=== PATIENT | female | born 1950 | race Caucasian/White ===

== ENCOUNTER 2017-07-04 09:26 | Inpatient (IN) ==
[2017-07-04] MEDS ORDERED: Ondansetron 4 MG/2 ML VIAL IVP ONE (09:52)
[2017-07-04] MEDS ORDERED: 0.9 % Sodium Chloride 1,000 ML IVC ONE (09:52)
--- NOTE | 2017-07-04 09:52 | Emergency Department Note ---
Disposition Clinical Impression: Acute renal injury due to hypovolemia Anemia Qualifiers: Anemia type: unspecified type Qualified Code(s): D64.9 - Anemia, unspecified Disposition: Admitted As Inpatient Condition: Fair Time of Disposition: 11:40 ([facility]) Nausea/Vomiting/Diarrhea HPI - General Chief complaint: ED Nausea/Vomiting/Diarrhea Stated complaint: nausea/vomiting/diarrhea Time Seen by Provider: 07/04/17 09:49 Source: patient, family Limitations: no limitations - History of Present Illness Pt Subjective Complaint: nausea, vomiting, diarrhea Onset (ago): week(s) Description of emesis: food contents, watery Description of Diarrhea: water Associated Abdominal Pain: No Severity: moderate Consistency: intermittent Improves with: nothing Worsens with: nonthing Associated symptoms: Reports: loss of appetite. Denies: myalgias, chest pain, cough, headaches, dysuria, shortness of breath, syncope - Related Data Home Medications Medication Instructions Recorded Confirmed Atenolol [Tenormin] 25 mg PO DAILY 07/04/17 07/04/17 Citalopram [CeleXA] 20 mg PO DAILY 07/04/17 07/04/17 Lisinopril [Zestril] 40 mg PO DAILY 07/04/17 07/04/17 Pravastatin Sodium [Pravachol] 20 mg PO DAILY 07/04/17 07/04/17 traZODone [TraZODone] 100 mg PO HS 07/04/17 07/04/17 Allergies Allergy/AdvReac Type Severity Reaction Status Date / Time No Known Allergies Allergy Verified 07/04/17 09:28 Past Medical History - Past Medical History Medical history: Reports: hyperlipidemia, hypertension, other Psychiatric history: Reports: no psych history INDUSTRIAL CHEMIST history: Reports: no INDUSTRIAL CHEMIST history - Social History Smoking Status: Current every day smoker Smokeless Tobacco Status: No Alcohol use: Reports: rarely Drug use: Reports: none Physical Exam - General Limitations: no limitations General appearance: alert Course Vital Signs Temperature 99.5 F 07/04/17 09:28 Pulse Rate 99 07/04/17 09:28 Respiratory Rate 18 07/04/17 09:28 Blood Pressure 99/60 07/04/17 09:28 O2 Sat by Pulse Oximetry 97 07/04/17 09:28 Temperature 99.0 F 01/04/18 12:37 Pulse Rate 90 07/05/17 12:37 Respiratory Rate 16 07/05/17 12:37 Blood Pressure 92/53 07/05/17 12:37 O2 Sat by Pulse Oximetry 95 07/05/17 12:37 Oxygen Delivery Oxygen Delivery Room Air Nausea/Vomiting/Diarrhea - MDM Narrative Medical decision making narrative: Stable ED course were nonspecific etiology for current nausea, vomiting and diarrhea. The patient does have acute kidney injury secondary to hypovolemia. The patient also has undetermined etiology for her anemia. She will be admitted to the hospital for hydration and further evaluation and treatment. The patient is amenable with current disposition and plan. - Medical Records Medical records reviewed: Yes I reviewed the patient's medical records. - Lab Data Lab results reviewed: Yes I reviewed the patient's lab results. Result diagrams: 07/05/17 05:51 07/05/17 05:51 Lab Results 07/04/17 07/04/17 07/04/17 Range/Units 10:23 10:23 10:23 WBC 2.1 L (4.3-11.1) K/mcL RBC 2.96 L (3.82-4.97) M/mcL Hgb 8.7 L (11.5-15.4) g/dL Hct 26.2 L (35.3-44.9) % MCV 88.5 (83.0-100.0) fL MCH 29.4 (28.0-33.3) pg MCHC 33.2 (31.6-35.5) g/dL RDW 17.0 H (11.5-14.5) % Plt Count 86 L (140-400) K/mcL MPV 11.3 (9.4-12.4) fL Seg Neutrophils % 60.0 % Band Neutrophils % 14.0 H (0-4) % Lymphocytes % 6.0 % Monocytes % 20.0 % Neutrophils # 1.6 (1.6-8.9) K/mcL Lymphocytes # 0.1 L (0.6-4.6) K/mcL Monocytes # 0.4 (0.0-1.3) K/mcL Platelet Estimate Decreased L (Normal) Sodium 134 L (136-145) mEq/L Potassium 3.6 (3.5-4.5) mEq/L Chloride 99 (98-109) mEq/L Carbon Dioxide 23 (19-29) mEq/L BUN 27 H (7-20) mg/dL Creatinine 1.44 H (0.57-1.11) mg/dL Est GFR ( Amer) 44 L (> 60) Est GFR (Non-Af Amer) 37 L (> 60) BUN/Creatinine Ratio 19 (6-26) Glucose 115 H (70-99) mg/dL Calculated Osmolality 284 (280-300) Calcium 9.0 (8.6-10.8) mg/dL Magnesium 1.8 (1.6-2.6) mg/dL Total Bilirubin 1.2 (0.2-1.2) mg/dL AST 11 (5-34) Units/L ALT 10 (0-55) Units/L Alkaline Phosphatase 94 (38-126) Units/L Serum Total Protein 7.4 (6.0-8.3) g/dL Albumin 2.9 L (3.5-5.0) g/dL Globulin 4.5 H (2.4-3.5) g/dL Albumin/Globulin Ratio 0.6 L (1.1-2.2) Lipase 5 L (8-78) Units/L TSH 4.593 (0.350-4.840) mcIU/mL Urine Color (Yellow) Urine Clarity (Clear) Urine pH (5.0-8.0) pH Units Ur Specific [place] (1.010-1.025) Urine Protein (Neg-Trace) mg/dL Urine Glucose (UA) (Normal) mg/dL Urine Ketones (Negative) mg/dL Urine Blood (Negative) Urine Nitrite (Negative) Urine Bilirubin (Negative) Urine Urobilinogen (Normal) mg/dL Ur Leukocyte Esterase (Negative) Urine Microscopic RBC (0-3) per hpf Urine Microscopic WBC (0-3) per hpf Ur Squamous Epith Cells (None-Few) per lpf Amorphous Sediment (Few) Urine Bacteria (None-Few) per hpf Hyaline Casts (None-Few) per lpf Granular Casts (None Seen) per lpf Ur Culture Indicated? (NO) 07/04/17 Range/Units 11:31 WBC (4.3-11.1) K/mcL RBC (3.82-4.97) M/mcL Hgb (11.5-15.4) g/dL Hct (35.3-44.9) % MCV (83.0-100.0) fL MCH (28.0-33.3) pg MCHC (31.6-35.5) g/dL RDW (11.5-14.5) % Plt Count (140-400) K/mcL MPV (9.4-12.4) fL Seg Neutrophils % % Band Neutrophils % (0-4) % Lymphocytes % % Monocytes % % Neutrophils # (1.6-8.9) K/mcL Lymphocytes # (0.6-4.6) K/mcL Monocytes # (0.0-1.3) K/mcL Platelet Estimate (Normal) Sodium (136-145) mEq/L Potassium (3.5-4.5) mEq/L Chloride (98-109) mEq/L Carbon Dioxide (19-29) mEq/L BUN (7-20) mg/dL Creatinine (0.57-1.11) mg/dL Est GFR ( Amer) (> 60) Est GFR (Non-Af Amer) (> 60) BUN/Creatinine Ratio (6-26) Glucose (70-99) mg/dL Calculated Osmolality (280-300) Calcium (8.6-10.8) mg/dL Magnesium (1.6-2.6) mg/dL Total Bilirubin (0.2-1.2) mg/dL AST (5-34) Units/L ALT (0-55) Units/L Alkaline Phosphatase (38-126) Units/L Serum Total Protein (6.0-8.3) g/dL Albumin (3.5-5.0) g/dL Globulin (2.4-3.5) g/dL Albumin/Globulin Ratio (1.1-2.2) Lipase (8-78) Units/L TSH (0.350-4.840) mcIU/mL Urine Color [place] A (Yellow) Urine Clarity Slightly Cloudy A (Clear) Urine pH 5.0 (5.0-8.0) pH Units Ur Specific [place] 1.025 (1.010-1.025) Urine Protein 30 H (Neg-Trace) mg/dL Urine Glucose (UA) Normal (Normal) mg/dL Urine Ketones Trace H (Negative) mg/dL Urine Blood Moderate H (Negative) Urine Nitrite Negative (Negative) Urine Bilirubin Moderate H (Negative) Urine Urobilinogen 4.0 H (Normal) mg/dL Ur Leukocyte Esterase Negative (Negative) Urine Microscopic RBC 3-5 H (0-3) per hpf Urine Microscopic WBC 0-3 (0-3) per hpf Ur Squamous Epith Cells Many H (None-Few) per lpf Amorphous Sediment Moderate H (Few) Urine Bacteria Few (None-Few) per hpf Hyaline Casts Few (None-Few) per lpf Granular Casts Few H (None Seen) per lpf Ur Culture Indicated? NO (NO) - Radiology Data Chest/Abdomen X-ray 07/04/17 09:52 IMPRESSION: 1. No acute cardiopulmonary disease. 2. Gallstones. D/ / Juan Burns MD / Juan Burns MD Interpreting Provider: Juan Burns MD Abdomen/Pelvis CT 07/04/17 19:11 IMPRESSION: 1. Common bile duct is dilated up to 1.7 cm without obvious cause. 2. Multiple calcified gallstones. 3. Multiple subcentimeter gastrohepatic ligament lymph nodes could represent reactive change. 4. Colonic diverticulosis without evidence of acute diverticulitis. D/ / Cliff Mcbride MD / Cliff Mcbride MD Interpreting Provider: Cliff Mcbride MD Chest CT 07/04/17 19:11 IMPRESSION: Ill-defined airspace disease in the lateral aspect of the right middle lobe. This is indeterminate may represent a small segment of atelectasis or pneumonia. This is age indeterminate. Multiple small lymph nodes in the axillary regions and mediastinum without pathologic enlargement. Tiny nodular densities on the left are too small to characterize Gallstones Splenomegaly D/ / Nic Lr / Nic Lr Interpreting Provider: Nic Lr
[2017-07-04 10:32] LABS: Hematocrit 26.2 % (35.3-44.9); Hemoglobin 8.7 g/dL (11.5-15.4); Mean Corpuscular HGB Conc 33.2 g/dL (31.6-35.5); Mean Corpuscular Hemoglobin 29.4 pg (28.0-33.3); Mean Corpuscular Volume 88.5 fL (83.0-100.0); Mean Platelet Volume 11.3 fL (9.4-12.4); Platelet Count 86 K/mcL (140-400); Red Blood Count 2.96 M/mcL (3.82-4.97)
[2017-07-04 10:40] LABS: Magnesium 1.8 mg/dL (1.6-2.6)
[2017-07-04 10:46] LABS: Albumin 2.9 g/dL (3.5-5.0); Albumin/Globulin Ratio 0.6 (1.1-2.2); Bilirubin,Total 1.2 mg/dL (0.2-1.2); Globulin 4.5 g/dL (2.4-3.5); Potassium 3.6 mEq/L (3.5-4.5); Total Protein 7.4 g/dL (6.0-8.3)
[2017-07-04 11:06] LABS: Thyroid Stimulating Hormone 4.593 mcIU/mL (0.350-4.840)
[2017-07-04 11:37] LABS: Bilirubin,Urine Moderate (Negative); Blood,Urine Moderate (Negative); Clarity,Urine Slightly Cloudy (Clear); Color,Urine Amber (Yellow); Glucose,Urine (UA) Normal (Normal); Ketones,Urine Trace mg/dL (Negative); Leukocyte Esterase,Urine Negative (Negative); Nitrite,Urine Negative (Negative); Protein,Urine 30 mg/dL (Neg-Trace); Specific Gravity,Urine 1.025 (1.010-1.025)
[2017-07-04 12:00] LABS: Amorphous Sediment,Urine Moderate (Few); Bacteria,Urine Few per hpf (None-Few); Granular Casts,Urine Few per lpf (None Seen); Hyaline Casts,Urine Few per lpf (None-Few); Squamous Epithelial Cell,Urine Many per lpf (None-Few); WBC,Urine 0-3 per hpf (0-3)
[2017-07-04 12:33] LABS: Lymphocytes # 0.1 K/mcL (0.6-4.6); Monocytes # 0.4 K/mcL (0.0-1.3); Neutrophils # 1.6 K/mcL (1.6-8.9); Platelet Estimate Decreased (Normal)
[2017-07-04] MEDS ORDERED: Ondansetron 4 MG/2 ML VIAL IVP PRN (13:31)
[2017-07-04] MEDS ORDERED: 0.9 % Sodium Chloride 1,000 ML IVC SCH (13:31)
[2017-07-04] MEDS ORDERED: Naloxone 0.4 MG/ML INJ IVP PRN (13:31)
[2017-07-04] MEDS ORDERED: 0.9 % Sodium Chloride 500 ML IVC ONE (15:43)
[2017-07-04] MEDS: Acetaminophen 325 MG TABLET PO PRN (16:07)
--- NOTE | 2017-07-04 19:21 | Internal Med History&Physical ---
Date of Encounter: 07/04/17 Time of Encounter: 18:45 Assessment and Plan (1) Acute renal injury due to hypovolemia Current visit: Yes Status: Acute She will be given IV fluids. Renal indices will be rechecked in a.m. (2) Pancytopenia Current visit: Yes Status: Acute Not present on August 2016 labs. Will order anemia testing ,SPEP and free light chains (3) Weight loss Current visit: Yes Status: Acute We will order CT scan of chest abdomen and pelvis to further evaluate for malignancy Internal Medicine - H&P: HPI Chief complaint: Vomiting, diarrhea, weakness Admitted From: Emergency Dept Plans for Post Hospital Care: Home History of present illness: Ms. Cervantes is a 66 year old female who came to emergency room stating she had been experiencing recurrent cycles of vomiting and diarrhea over the last 3 months. She reports the episodes would last several days and then completely resolve. There was no significant abdominal pain associated. She denies blood in the vomit or the stool. She has felt progressively weaker and has had several falls at home with most recent one approximately 2 weeks ago. Her was adamant she come to emergency room for further evaluation. She was found to have pancytopenia with bandemia and was admitted to [facility] floor for ongoing care needs. She reports she has had intermittent sensation of low-grade fevers and night sweats for several weeks. She has had approximately 15 pound weight loss in the past 4 months, unintentionally. She denies unusual travel or other environmental exposures. Past Med Surg Social Fam HX - Past Medical History Medical history: hyperlipidemia, hypertension, other Psychiatric history: no psych history - Social History Smoking Status: Current every day smoker Smokeless Tobacco Status: No Alcohol use: rarely Drug use: none Internal Medicine - H&P: Meds Atenolol [Tenormin] 25 mg PO DAILY 07/04/17 [History] Citalopram [CeleXA] 20 mg PO DAILY 07/04/17 [History] Lisinopril [Zestril] 40 mg PO DAILY 07/04/17 [History] Pravastatin Sodium [Pravachol] 20 mg PO DAILY 07/04/17 [History] traZODone [TraZODone] 100 mg PO HS 07/04/17 [History] 3 Allergy/AdvReac Type Severity Reaction Status Date / Time No Known Allergies Allergy Verified 07/04/17 09:28 All Systems PM: A 10-system review of systems was performed and is negative for pertinent findings except as documented above in the HPI. Review of systems: Gen.: She has had weight loss of 15 pounds in the past 4 months, unintentionally Cardiovascular: She has history of hypertension. 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 She denies having a heart cath done. She reports having a "viral infection" around her heart but could not give details. She is uncertain if she has been told she has had viral pericarditis or nonischemic cardiomyopathy. She denies DVT or pulmonary embolus. Respiratory: She has smoked since age 29 never up to 1 pack per day. She does not wear oxygen and has not been diagnosed with chronic lung disease GI: She denies disorders of her liver gallbladder or exocrine pancreas : She has noticed dark urine intermittently for several weeks but has not sought medical attention. She denies other kidney or bladder disorders. She was unaware she had intermittent azotemia on labs since January 2014. Neurologic: She denies large distribution strokes or seizures. Endocrine: She denies diabetes thyroid disease or hyperlipidemia Hematology/oncology: She was unaware she had anemia or pancytopenia prior to coming to the emergency room. She denies known internal malignancies. Psychiatric: She denies anxiety depression or other mental health issues Musk skeletal: She denies arthritis gout or other bone joint or muscle disorders. - Constitutional Vitals: Temp Pulse Resp BP Pulse Ox 100.4 F H 97 18 86/53 97 07/04/17 15:29 07/04/17 15:29 07/04/17 15:29 07/04/17 15:29 07/04/17 15:29 Exam: Gen.: She is well-developed well-nourished female lying in bed who appears in no acute distress HEENT: Head is atraumatic and normocephalic. Eyes: EOMI. There is no scleral icterus. Mouth: Mucosa is moist. Neck: Supple and nontender. There is no thyromegaly or adenopathy noted in the cervical or supraclavicular areas Heart: Regular without murmurs gallops or ectopics Lungs: No wheezes or crackles are heard. Abdomen: Soft and nontender. No masses or guarding are noted. Extremities: There is no cyanosis edema or clubbing noted. Dorsalis pedis and posterior tibial pulses are trace to 1+ palpable bilaterally. Neurologic: Mental status: She is talkative and a good historian. Cranial nerves: Smile is symmetric. Forehead wrinkles bilaterally. Tongue protrudes midline. EOMI. Motor: There is no pronator drift. Cerebellar: Finger to nose is intact bilaterally. Skin: Warm and dry Internal Med - H&P Results - Labs CBC & Chem 7: 07/04/17 10:23 07/04/17 10:23
[2017-07-04] MEDS: traZODone 50 MG TABLET PO SCH (21:07)
[2017-07-05] MEDS: 0.45 % Sodium Chloride w/KCl 20 MEQ/1,000 ML MLS IVC SCH ×2 (02:20→12:15)
[2017-07-05 06:11] LABS: Hematocrit 20.7 % (35.3-44.9); Hemoglobin 6.8 g/dL (11.5-15.4); Immature Granulocytes % 1.5 % (0-4); Lymphocytes # 0.3 K/mcL (0.6-4.6); Lymphocytes % 22.2 %; Mean Corpuscular HGB Conc 32.9 g/dL (31.6-35.5); Mean Corpuscular Hemoglobin 29.3 pg (28.0-33.3); Mean Corpuscular Volume 89.2 fL (83.0-100.0); Mean Platelet Volume 11.9 fL (9.4-12.4); Monocytes % 32.6 %; Neutrophils # 0.6 K/mcL (1.6-8.9); Red Blood Count 2.32 M/mcL (3.82-4.97); Red Cell Distribution Width 16.8 % (11.5-14.5); Segmented Neutrophils % 43.7 %
[2017-07-05 06:23] LABS: BUN/Creatinine Ratio 23 (6-26); Blood Urea Nitrogen 25 mg/dL (7-20); Calcium 7.7 mg/dL (8.6-10.8); Carbon Dioxide 20 mEq/L (19-29); Chloride 106 mEq/L (98-109); Glucose 87 mg/dL (70-99); Osmolality,Calculated 286 (280-300); Potassium 3.9 mEq/L (3.5-4.5); Sodium 136 mEq/L (136-145); eGFR For African Americans > 60 (> 60); eGFR For Non-African Americans 51 (> 60)
[2017-07-05 06:56] LABS: Monocytes # 0.5 K/mcL (0.0-1.3); Platelet Count 59 K/mcL (140-400)
[2017-07-05 07:22] LABS: Anisocytosis 1+ (Not Present); Platelet Estimate Decreased (Normal)
[2017-07-05 07:23] LABS: Spherocytes 1+ (Not Present)
[2017-07-05] MEDS ORDERED: Lisinopril 20 MG TABLET PO SCH (09:00)
--- NOTE | 2017-07-05 11:22 | Internal Med Progress Note ---
Date of Encounter: 07/05/17 Time of Encounter: 11:15 - Assessment and plan (1) Acute renal injury due to hypovolemia Current Visit: Yes Status: Acute Assessment and plan: July 05. Azotemia improved. We will decrease IV rate and monitor renal indices. (2) Pancytopenia Current Visit: Yes Status: Acute Assessment and plan: July 05. All cell lines further decreased today. Anemia testing, SPEP, and serum free light chains all pending. (3) Weight loss Current Visit: Yes Status: Acute Assessment and plan: July 05. Chest and abdomen/pelvis CT did not show pathology suggestive of malignancy. (4) Pneumonia Current Visit: Yes Status: Acute Assessment and plan: July 05. Chest CT showed possible right middle lobe pneumonia. We will start Rocephin and Zithromax with lactobacillus. Qualifiers: Pneumonia type: due to unspecified organism Laterality: right Lung location: middle lobe of lung Qualified Code(s): J18.1 - Lobar pneumonia, unspecified organism - Subjective Interval history: July 05. She has no new complaints. - Constitutional Vitals: Temp Pulse Resp BP Pulse Ox 99.7 F H 92 18 108/71 94 07/05/17 07:00 07/05/17 07:00 07/05/17 07:00 07/05/17 07:00 07/05/17 07:00 Exam: She is resting comfortably in bed and appears in no acute distress. Her affect is bright and cheerful. I reviewed her medications, lab results, and CT reports. Internal Medicine: Result - Labs CBC & Chem 7: 07/05/17 05:51 07/05/17 05:51 Labs: Short CBC 07/05/17 Range/Units 05:51 WBC 1.4 L (4.3-11.1) K/mcL Hgb 6.8 L D (11.5-15.4) g/dL Hct 20.7 L (35.3-44.9) % Plt Count 59 L (140-400) K/mcL Neutrophils # 0.6 L (1.6-8.9) K/mcL BMP 07/05/17 05:51 Sodium 136 Potassium 3.9 Chloride 106 Carbon Dioxide 20 BUN 25 H Creatinine 1.08 Glucose 87 Calcium 7.7 L - Impressions Impressions Abdomen/Pelvis CT 07/04/17 19:11 IMPRESSION: 1. Common bile duct is dilated up to 1.7 cm without obvious cause. 2. Multiple calcified gallstones. 3. Multiple subcentimeter gastrohepatic ligament lymph nodes could represent reactive change. 4. Colonic diverticulosis without evidence of acute diverticulitis. D/ / Cliff Mcbride MD / Cliff Mcbride MD Interpreting Provider: Cliff Mcbride MD Chest CT 07/04/17 19:11 IMPRESSION: Ill-defined airspace disease in the lateral aspect of the right middle lobe. This is indeterminate may represent a small segment of atelectasis or pneumonia. This is age indeterminate. Multiple small lymph nodes in the axillary regions and mediastinum without pathologic enlargement. Tiny nodular densities on the left are too small to characterize Gallstones Splenomegaly D/ / Nic Lr / Nic Lr Interpreting Provider: Nic Lr Consult Discharge Plan - Plan Referrals: Gertrudis Chapin MD [Primary Care Provider] - 1 week
[2017-07-05] MEDS: Azithromycin 500 MG in D5% in Water 250 ML IVPB SCH (12:23)
[2017-07-05] MEDS: Acetaminophen 325 MG TABLET PO PRN (16:09)
[2017-07-05] MEDS ORDERED: Cyanocobalamin (B-12) 1,000 MCG/ML VIAL IM ONE (18:00)
[2017-07-05] MEDS: traZODone 50 MG TABLET PO SCH (19:51)
[2017-07-05] MEDS: Lactobacillus 1 EACH CAP.SPRINK PO SCH (19:51)
[2017-07-05 23:20] LABS: % Iron Saturation 6 % (15-50); Ferritin > 1350 ng/ml (10-120); Iron 10 mcg/dL (50-170); Transferrin 117 mg/dL (203-362)
[2017-07-06 06:25] LABS: Hematocrit 20.3 % (35.3-44.9); Hemoglobin 6.6 g/dL (11.5-15.4); Immature Granulocytes % 1.5 % (0-4); Lymphocytes # 0.3 K/mcL (0.6-4.6); Lymphocytes % 21.2 %; Mean Corpuscular HGB Conc 32.5 g/dL (31.6-35.5); Mean Corpuscular Hemoglobin 28.8 pg (28.0-33.3); Mean Corpuscular Volume 88.6 fL (83.0-100.0); Mean Platelet Volume 11.4 fL (9.4-12.4); Monocytes # 0.4 K/mcL (0.0-1.3); Monocytes % 31.8 %; Neutrophils # 0.6 K/mcL (1.6-8.9); Red Blood Count 2.29 M/mcL (3.82-4.97); Red Cell Distribution Width 16.6 % (11.5-14.5); Segmented Neutrophils % 45.5 %
[2017-07-06 06:36] LABS: Platelet Count 64 K/mcL (140-400)
[2017-07-06 06:42] LABS: Alanine Aminotransferase 11 Units/L (0-55); Albumin 2.2 g/dL (3.5-5.0); Albumin/Globulin Ratio 0.7 (1.1-2.2); Alkaline Phosphatase 90 Units/L (38-126); Aspartate Amino Transferase 13 Units/L (5-34); BUN/Creatinine Ratio 21 (6-26); Bilirubin,Total 0.7 mg/dL (0.2-1.2); Blood Urea Nitrogen 16 mg/dL (7-20); Calcium 7.9 mg/dL (8.6-10.8); Carbon Dioxide 21 mEq/L (19-29); Chloride 108 mEq/L (98-109); Globulin 3.3 g/dL (2.4-3.5); Glucose 98 mg/dL (70-99); Osmolality,Calculated 287 (280-300); Potassium 4.2 mEq/L (3.5-4.5); Sodium 138 mEq/L (136-145); Total Protein 5.5 g/dL (6.0-8.3); eGFR For African Americans > 60 (> 60); eGFR For Non-African Americans > 60 (> 60)
[2017-07-06 07:31] LABS: Anisocytosis 1+ (Not Present)
[2017-07-06 07:32] LABS: Hypochromasia Present (Not Present); Platelet Estimate Normal (Normal)
[2017-07-06] MEDS: 0.45 % Sodium Chloride w/KCl 20 MEQ/1,000 ML MLS IVC SCH ×2 (09:13→09:20)
[2017-07-06] MEDS: Lactobacillus 1 EACH CAP.SPRINK PO SCH ×2 (09:15→21:40)
--- NOTE | 2017-07-06 09:56 | Internal Med Progress Note ---
Date of Encounter: 07/06/17 Time of Encounter: 09:45 - Assessment and plan (1) Acute renal injury due to hypovolemia Current Visit: Yes Status: Acute Assessment and plan: July 05. Azotemia improved. We will decrease IV rate and monitor renal indices. July 06. Azotemia resolved with creatinine at the lowest level since January 2014. We will discontinue IV fluids. (2) Pancytopenia Current Visit: Yes Status: Acute Assessment and plan: July 05. All cell lines further decreased today. Anemia testing, SPEP, and serum free light chains all pending. July 06. Minimal change overnight. Anemia testing showed low B12 and she was given IM injection yesterday. Ferritin was markedly elevated probably reflecting acute phase reactant rather than true iron status. SPEP and free light chains pending. She is still reluctant to take packed red blood cell transfusion. Since she is asymptomatic at this time will observe and recheck labs tomorrow. (3) Weight loss Current Visit: Yes Status: Acute Assessment and plan: July 05. Chest and abdomen/pelvis CT did not show pathology suggestive of malignancy. (4) Pneumonia Current Visit: Yes Status: Acute Assessment and plan: July 05. Chest CT showed possible right middle lobe pneumonia. We will start Rocephin and Zithromax with lactobacillus. July 06. Continue Rocephin, Zithromax, and lactobacillus. Qualifiers: Pneumonia type: due to unspecified organism Laterality: right Lung location: middle lobe of lung Qualified Code(s): J18.1 - Lobar pneumonia, unspecified organism - Subjective Interval history: July 05. She has no new complaints. July 06. She has no new complaints and feels better. She reports no orthostatic symptoms or significant dyspnea ambulating to the bathroom. - Constitutional Vitals: Temp Pulse Resp BP Pulse Ox 99.4 F 88 18 104/61 93 07/06/17 05:34 07/06/17 05:34 07/06/17 05:34 07/06/17 05:34 07/06/17 05:34 Exam: She is resting comfortably in bed and appears in no acute distress. Her affect is bright and cheerful. I reviewed her medications and lab results. Internal Medicine: Result - Labs CBC & Chem 7: 07/06/17 06:07 07/06/17 06:07 Labs: Short CBC 07/06/17 Range/Units 06:07 WBC 1.3 L (4.3-11.1) K/mcL Hgb 6.6 L (11.5-15.4) g/dL Hct 20.3 L (35.3-44.9) % Plt Count 64 L (140-400) K/mcL Neutrophils # 0.6 L (1.6-8.9) K/mcL BMP 07/06/17 06:07 Sodium 138 Potassium 4.2 Chloride 108 Carbon Dioxide 21 BUN 16 Creatinine 0.77 Glucose 98 Calcium 7.9 L Liver Function 07/06/17 Range/Units 06:07 Total Bilirubin 0.7 (0.2-1.2) mg/dL AST 13 (5-34) Units/L ALT 11 (0-55) Units/L Alkaline Phosphatase 90 (38-126) Units/L Albumin 2.2 L D (3.5-5.0) g/dL Consult Discharge Plan - Plan Referrals: Gertrudis Chapin MD [Primary Care Provider] - 1 week
[2017-07-06] MEDS: Azithromycin 500 MG in D5% in Water 250 ML IVPB SCH (12:49)
[2017-07-06 15:45] LABS: Kappa Qnt Free Light Chains 5.21 mg/dL (0.33-1.94); Lambda Qnt Free Light Chains 2.2 mg/dL (0.57-2.63)
[2017-07-06] MEDS: traZODone 50 MG TABLET PO SCH (21:40)
[2017-07-07 01:14] LABS: Alpha 2 Globulin (PEP) 0.87 g/dL (0.48-1.05); Beta Globulin (PEP) 0.82 g/dL (0.48-1.10)
[2017-07-07 05:21] LABS: Eosinophils % 0.7 %; Hematocrit 21.5 % (35.3-44.9); Hemoglobin 6.8 g/dL (11.5-15.4); Immature Granulocytes % 4.2 % (0-4); Lymphocytes % 38.2 %; Mean Corpuscular HGB Conc 31.6 g/dL (31.6-35.5); Mean Corpuscular Hemoglobin 28.7 pg (28.0-33.3); Mean Corpuscular Volume 90.7 fL (83.0-100.0); Mean Platelet Volume 11.7 fL (9.4-12.4); Monocytes # 0.4 K/mcL (0.0-1.3); Neutrophils # 0.5 K/mcL (1.6-8.9); Red Blood Count 2.37 M/mcL (3.82-4.97); Red Cell Distribution Width 16.9 % (11.5-14.5); Segmented Neutrophils % 31.9 %
[2017-07-07 05:25] LABS: Lymphocytes # 0.5 K/mcL (0.6-4.6); Platelet Count 80 K/mcL (140-400)
[2017-07-07 06:14] LABS: Anisocytosis 1+ (Not Present); Platelet Estimate Decreased (Normal)
[2017-07-07 06:15] LABS: Hypochromasia Present (Not Present)
[2017-07-07 06:31] VITALS: BP 99/53
--- NOTE | 2017-07-07 08:52 | Discharge Summary ---
Date of Encounter: 07/07/17 Time of Encounter: 08:40 - Discharge Diagnosis (1) Acute renal injury due to hypovolemia Priority: Primary Status: Resolved (2) Pneumonia Priority: Secondary Status: Acute Qualifiers: Pneumonia type: due to unspecified organism Laterality: right Lung location: middle lobe of lung Qualified Code(s): J18.1 - Lobar pneumonia, unspecified organism (3) Pancytopenia Priority: Secondary Status: Acute (4) Weight loss Priority: Secondary Status: Acute - Discharge Medications Prescriptions: Cefuroxime PO [Ceftin] 500 mg PO Q12HR #8 tablet Ascorbate Calcium [Vitamin C] 500 mg PO DAILY #30 tablet Azithromycin [Zithromax] 250 mg PO DAILY #4 tablet Cyanocobalamin (B-12) [Vitamin B12] 1,000 mcg PO DAILY 365 Days tablet Ferrous Sulfate 325 mg PO DAILY #30 tablet Lactobacillus [Culturelle] 1 each PO BID #8 [email or web address] Home Medications: Citalopram [CeleXA] 20 mg PO DAILY 07/04/17 [History] traZODone [TraZODone] 100 mg PO HS 07/04/17 [History] Ascorbate Calcium [Vitamin C] 500 mg PO DAILY #30 tablet 07/07/17 [Rx] Azithromycin [Zithromax] 250 mg PO DAILY #4 tablet 07/07/17 [Rx] Cefuroxime PO [Ceftin] 500 mg PO Q12HR #8 tablet 07/07/17 [Rx] Cyanocobalamin (B-12) [Vitamin B12] 1,000 mcg PO DAILY 365 Days tablet [Rx] Ferrous Sulfate 325 mg PO DAILY #30 tablet 07/07/17 [Rx] Lactobacillus [Culturelle] 1 each PO BID #8 [email or web address] 07/07/17 [Rx] Allergies/Adverse Reactions: 3 Allergy/AdvReac Type Severity Reaction Status Date / Time No Known Allergies Allergy Verified 07/04/17 09:28 Date of admission: 07/06/17 13:59 Primary care physician: Gertrudis Chapin - Patient Status Disposition: Home, Self-Care Condition: Fair Functional capacity at discharge: independent ambulation Overall status at discharge: patient is progressing back to baseline - Discharge Instructions Follow Up With: Gertrudis Chapin MD [Primary Care Provider] - 1 week - Diet and Activity Activity: resume usual activities as tolerated Diet: advance to your usual diet Hospital course: Ms. Cervatnes is a 66 year old female who came to emergency room stating she had been experiencing recurrent cycles of vomiting and diarrhea over the last 3 months. She reports the episodes would last several days and then completely resolve. There was no significant abdominal pain associated. She denies blood in the vomit or the stool. She has felt progressively weaker and has had several falls at home with most recent one approximately 2 weeks ago. Her was adamant she come to emergency room for further evaluation. She was found to have pancytopenia with bandemia and was admitted to [facility] floor for ongoing care needs. Initial orders were written by the emergency room physician. I saw her on July 04 and performed a history and physical. She was given IV fluids. Lisinopril and Tenormin were held. Her azotemia resolved with BUN and creatinine decreasing to 16 and 0.77 respectively with estimated GFR greater than 60 on July 06. She will remain off these medications at discharge. Anemia testing showed iron 10, transferrin saturation 6%, transferrin 117, ferritin greater than 1350, B12 198, and folate 28. She was given a B12 injection and will continue oral B12 supplementation at home. She will also be given ferrous sulfate with vitamin C. A serum protein electrophoresis and serum free light chains were ordered because of the anemia and elevated globulin. These results are pending at time of discharge. Her globulin normalized by July 06 with hydration and medication adjustments listed above. Her WBC decreased to 1.4 on July 05 and remained stable throughout the remainder of hospitalization. Platelet count was stable at 80 K on day of discharge. Hemoglobin was stable at 6.8 on day of discharge. She did not wish to receive a blood transfusion and was asymptomatic on ambulation. Bandemia resolved and there was a significant rise in lymphocytes and monocytes. I felt her pancytopenia was possibly due to infection. She was treated for pneumonia with Rocephin and Zithromax and will continue with oral antibiotics and probiotics for 4 additional days at discharge. Her PCP can monitor her CBC. She will be discharged home and follow with her PCP Dr. Chapin within 1 week. - Time Spent with Patient Total time spent providing and/or coordinating discharge services: - Constitutional Vitals: Temp Pulse Resp BP Pulse Ox 98.0 F 87 16 99/53 98 07/07/17 06:30 07/07/17 06:30 07/07/17 06:30 07/07/17 06:30 07/07/17 06:30
[2017-07-07] MEDS: Lactobacillus 1 EACH CAP.SPRINK PO SCH (09:06)
[2017-07-07 10:41] LABS: IFE Reflexed NOT DONE
== END 2017-07-07 10:08 | disposition home or self-care (01) | DRG 682 ==
LOC: EMEROOPIK 09:26 → INPPIK 09:26
PROVIDERS: ADMIT Internal Medicine; ATTEND Internal Medicine

== ENCOUNTER 2017-11-14 12:50 | Inpatient (IN) ==
[2017-11-15] MEDS ORDERED: (Diclofenac Sodium [Voltaren] 1 APPL) TP PRN (17:13)
[2017-11-15] MEDS ORDERED: Nitroglycerin 0.4 MG TAB.SUBL SL PRN (17:13)
[2017-11-15] MEDS ORDERED: Cyanocobalamin (B-12) 1,000 MCG/ML VIAL IM SCH (17:15)
[2017-11-15] MEDS: traZODone 50 MG TABLET PO SCH (20:34)
[2017-11-15] MEDS: *HR* Amiodarone 200 MG TABLET PO SCH (20:35)
[2017-11-15] MEDS: OMEGA PO SCH (20:36)
[2017-11-15] MEDS: FATTY ACIDS PO SCH (20:36)
[2017-11-16] MEDS: Levothyroxine 25 MCG TABLET PO SCH (06:41)
[2017-11-16] MEDS ORDERED: *HR* Amiodarone 200 MG TABLET PO SCH (10:00)
[2017-11-16] MEDS ORDERED: Cyanocobalamin (B-12) 1,000 MCG/ML VIAL IM ONE (10:00)
[2017-11-16] MEDS: FATTY ACIDS PO SCH ×2 (12:41→22:44)
[2017-11-16] MEDS: OMEGA PO SCH ×2 (12:41→22:44)
[2017-11-16] MEDS: *HR* Amiodarone 200 MG TABLET PO SCH (14:29)
[2017-11-16] MEDS: *HR* HYDROcodone/Acet 5/325 mg TABLET PO PRN (14:34)
--- NOTE | 2017-11-16 16:31 | Internal Med History&Physical ---
Date of Encounter: 11/16/17 Time of Encounter: 16:00 Assessment and Plan (1) Anemia Current visit: No Status: Chronic Will monitor CBC. Bone marrow exam in 1-2 weeks. Qualifiers: Anemia type: unspecified type Qualified Code(s): D64.9 - Anemia, unspecified (2) Weight loss Current visit: No Status: Chronic Weight not significant changed since July 2017 [facility] hospitalization however significant edema is now present. We will monitor. (3) Atrial fibrillation Current visit: No Status: Acute Now in NSR. Continue Xarelto and atenolol. Qualifiers: Atrial fibrillation type: paroxysmal Qualified Code(s): I48.0 - Paroxysmal atrial fibrillation (4) Hypothyroidism Current visit: No Status: Chronic Continue Synthroid Qualifiers: Hypothyroidism type: unspecified Qualified Code(s): E03.9 - Hypothyroidism , unspecified Internal Medicine - H&P: HPI Chief complaint: Anemia, pericardial effusion Admitted From: Hospital to Hospital Transfer Plans for Post Hospital Care: Home History of present illness: Ms. Cervantes is a 67 year old female who was transferred to [facility] swing bed 2017 following a 11/05/2017 [facility] admission for anemia. She had previously been hospitalized at [facility] for 10/27/2017 to 10/30/2017 with anemia. EGD and colonoscopy were done without significant pathology found. She did have diverticulosis and irregularity at the Z line but no active bleeding seen. She had worsening anemia and was readmitted. She was found to have an dyspnea with pericardial effusion seen on echocardiogram. There was felt to be early cardiac taponade present so a pericardial window procedure was performed. She had AF with RVR and converted back to NSR with amiodarone. She was seen by oncology for anemia and thrombocytopenia. A bone marrow study was recommended and is planned in 1-2 weeks. A rheumatology consult was suggested but has not been done. She was discharged to swing bed to receive therapy prior to returning to independent living. Past Med Surg Social Fam HX - Past Medical History Medical history: hyperlipidemia, hypertension, myocardial infarction Psychiatric history: no psych history - Past Surgical History Surgical History: no surgical history - Social History Smoking Status: Former smoker Smokeless Tobacco Status: No Alcohol use: none Drug use: none - Family History Mother Living Status: Hx Family Cancer: Yes Internal Medicine - H&P: Meds Atenolol [Tenormin] 50 mg PO DAILY 09/21/17 [History] Cyanocobalamin (B-12) [Vitamin B12] 1,000 mcg IM Q2W 09/21/17 [History] Diclofenac Sodium [Voltaren] 1 appl TP QID PRN 09/21/17 [History] Nitroglycerin [Nitrostat] 0.4 mg SL Q5M PRN 09/21/17 [History] Ondansetron HCl [Zofran] 4 - 8 mg PO TID PRN 09/21/17 [History] Potassium Chloride [K-Tab ER] 20 meq PO BID 09/21/17 [History] Pravastatin Sodium [Pravachol] 20 mg PO HS 09/21/17 [History] Trazodone HCl 100 mg PO HS 09/21/17 [History] Levothyroxine [Synthroid] 25 mcg PO 0630 10/16/17 [History] [place]-3 Fatty Acids [Fish Oil Concentrate] 2,000 mg PO BID 10/16/17 [History] Ipratropium/Albuterol Neb [Duoneb] 3 ml IH Q6HR PRN 7 Days #28 vial.neb [Rx] ALPRAZolam [Xanax 0.5 MG Tablet] 0.5 mg PO BID PRN 5 Days #10 11/15/17 [Rx] Albuterol Neb [Proventil Neb] 2.5 mg IH [id number] PRN inhsol 11/15/17 [Rx] Amiodarone [Cordarone] 200 mg PO BID #12 tablet 11/15/17 [Rx] Amiodarone [Cordarone] 200 mg PO DAILY #30 tablet 11/15/17 [Rx] HYDROcodone/Acet 5/325 mg [Nemo 5-325 mg] 1 tab PO TID PRN 5 Days #7 11/15/17 [ Rx] Omeprazole [PriLOSEC] 40 mg PO DAILY@0730 capsule. 11/15/17 [Rx] Rivaroxaban [Xarelto] 20 mg PO 1700 #30 tablet 11/15/17 [Rx] 3 Allergy/AdvReac Type Severity Reaction Status Date / Time No Known Allergies Allergy Verified 11/05/17 19:44 All Systems PM: A 10-system review of systems was performed and is negative for pertinent findings except as documented above in the HPI. Review of systems: Review of systems from her July 2017 [facility] hospitalization were reviewed and revised as below. Gen.: Her weight has been stable at approximately 84 kg since the July [facility] hospitalization. She now reports significant edema is present. Cardiovascular: She has history of hypertension. Reports she had AL at age 46. She denies having a heart cath done. She reported July 2017 admission of having a "viral infection" around her heart but could not give details. She is uncertain if she has been told she has had viral pericarditis. She had pericardial window procedure for pericardial effusion as per history of present illness. She denies DVT or pulmonary embolus. Echocardiogram post pericardiocentesis showed LVEF of 65-70% without significant valvular abnormality seen. She had atrial fibrillation at her recent [facility] stay as per above. Respiratory: She has smoked since age 29 never up to 1 pack per day. She does not wear oxygen and has not been diagnosed with chronic lung disease GI: She denies disorders of her liver gallbladder or exocrine pancreas : She has noticed dark urine intermittently for several weeks but has not sought medical attention. She denies other kidney or bladder disorders. Neurologic: She denies large distribution strokes or seizures. Endocrine: She has hypothyroidism but denies diabetes or hyperlipidemia Hematology/oncology: She has anemia and thrombocytopenia as per history of present illness. She denies known internal malignancies. Psychiatric: She denies anxiety depression or other mental health issues Musk skeletal: She denies arthritis gout or other bone joint or muscle disorders. - Constitutional Vitals: Temp Pulse Resp BP Pulse Ox 97.7 F 93 18 114/75 95 11/16/17 06:37 11/16/17 06:37 11/16/17 06:37 11/16/17 07:37 11/16/17 06:37 Exam: Gen.: She is a well-developed well-nourished female lying in bed who appears in no acute distress HEENT: Head is atraumatic and normocephalic. Eyes: EOMI. There is no scleral icterus. Mouth: Mucosa is moist. Neck: She has a right internal jugular area ecchymosis from recent IV insertion. There is no thyromegaly or adenopathy noted. Heart: Regular with rate approximately 100/m. No murmurs or gallops are heard. Lungs: No wheezes or crackles are heard. Abdomen: Soft and nontender. No masses or guarding are noted. Extremities: There is no cyanosis noted. She has 2-3+ edema of the dorsum of feet and lower legs. She has dependent edema in her lower thighs. There is no presacral edema. She has minimal DJD changes of her hands. Neurologic: Mental status: She is talkative and a good historian. Cranial nerves: Smile is symmetric. Forehead wrinkles bilaterally. Tongue protrudes midline. EOMI. Motor: There is no pronator drift. Cerebellar: Finger to nose is intact bilaterally. Skin: Warm and dry
[2017-11-16] MEDS: *HR* Rivaroxaban 10 MG TABLET PO SCH (18:30)
[2017-11-16] MEDS: traZODone 50 MG TABLET PO SCH (22:41)
[2017-11-17] MEDS: ALPRAZolam 0.5 MG TABLET PO PRN ×2 (00:06→18:25)
[2017-11-17] MEDS: *HR* HYDROcodone/Acet 5/325 mg TABLET PO PRN ×2 (00:06→21:13)
[2017-11-17 05:40] LABS: Hematocrit 25.3 % (35.3-44.9); Hemoglobin 8.3 g/dL (11.5-15.4); Mean Corpuscular HGB Conc 32.8 g/dL (31.6-35.5); Mean Corpuscular Hemoglobin 27.2 pg (28.0-33.3); Mean Platelet Volume 12.3 fL (9.4-12.4); Red Blood Count 3.05 M/mcL (3.82-4.97); Red Cell Distribution Width 15.6 % (11.5-14.5)
[2017-11-17 05:42] LABS: Platelet Count 96 K/mcL (140-400)
[2017-11-17 06:00] LABS: Alanine Aminotransferase 5 Units/L (7-52); Albumin 2.1 g/dL (3.5-5.7); Alkaline Phosphatase 395 Units/L (34-104); Aspartate Amino Transferase 7 Units/L (13-39); BUN/Creatinine Ratio 25 (6-26); Bilirubin,Total 1.4 mg/dL (0.3-1.0); Blood Urea Nitrogen 15 mg/dL (8-23); Calcium 8.3 mg/dL (8.6-10.3); Carbon Dioxide 22 mEq/L (23-29); Chloride 104 mEq/L (98-107); Globulin 2.2 g/dL (2.4-3.5); Glucose 89 mg/dL (70-105); Osmolality,Calculated 272 (280-300); Potassium 4.4 mEq/L (3.5-5.1); Sodium 131 mEq/L (136-145); Total Protein 4.3 g/dL (6.4-8.9); eGFR For African Americans > 60 (> 60); eGFR For Non-African Americans > 60 (> 60)
[2017-11-17 06:20] LABS: Anisocytosis 1+ (Not Present); Hypochromasia Present (Not Present); Lymphocytes # 0.6 K/mcL (0.6-4.6); Microcytosis Present (Not Present); Monocytes # 1.8 K/mcL (0.0-1.3); Neutrophils # 3.4 K/mcL (1.6-8.9); Polychromasia 1+ (Not Present)
[2017-11-17 06:21] LABS: Toxic Granulation Present (Not Present)
[2017-11-17 06:22] LABS: Platelet Estimate Slight Decrease (Normal)
[2017-11-17] MEDS: Levothyroxine 25 MCG TABLET PO SCH (06:24)
[2017-11-17] MEDS: *HR* Amiodarone 200 MG TABLET PO SCH (09:22)
--- NOTE | 2017-11-17 15:32 | Internal Med Progress Note ---
Date of Encounter: 11/17/17 Time of Encounter: 15:25 - Assessment and plan (1) Anemia Current Visit: No Status: Chronic Assessment and plan: November 17. Hemoglobin decreased slightly to 8.3. Await bone marrow biopsy in approximately 2 weeks. Qualifiers: Anemia type: unspecified type Qualified Code(s): D64.9 - Anemia, unspecified (2) Weight loss Current Visit: No Status: Chronic Assessment and plan: November 17. Will monitor (3) Atrial fibrillation Current Visit: No Status: Acute Assessment and plan: November 17. Continue Xarelto and atenolol. Qualifiers: Atrial fibrillation type: paroxysmal Qualified Code(s): I48.0 - Paroxysmal atrial fibrillation (4) Hypothyroidism Current Visit: No Status: Chronic Assessment and plan: November 17. Continue Synthroid. Qualifiers: Hypothyroidism type: unspecified Qualified Code(s): E03.9 - Hypothyroidism , unspecified (5) Edema Current Visit: Yes Status: Acute Assessment and plan: November 17. BN peptide normal at 79. Echocardiogram during recent [facility] hospitalization showed LVEF 65-70%. Suspect due to low oncotic intravascular pressure. Will start Bumex. Qualifiers: Edema type: unspecified Qualified Code(s): R60.9 - Edema, unspecified - Subjective Interval history: November 17. She has no new complaints. - Constitutional Vitals: Temp Pulse Resp BP Pulse Ox 97.9 F 94 16 106/70 97 11/17/17 07:11 11/17/17 07:11 11/17/17 07:11 11/17/17 07:11 11/17/17 07:11 Exam: She is resting comfortably in bed and appears in no acute distress. Her affect is bright and cheerful. I reviewed her medications. I discussed pertinent lab results with her. Internal Medicine: Result - Labs CBC & Chem 7: 11/17/17 05:15 11/17/17 05:15 Labs: Short CBC 11/17/17 Range/Units 05:15 WBC 5.9 (4.3-11.1) K/mcL Hgb 8.3 L (11.5-15.4) g/dL Hct 25.3 L (35.3-44.9) % Plt Count 96 L (140-400) K/mcL Neutrophils # 3.4 (1.6-8.9) K/mcL BMP 11/17/17 05:15 Sodium 131 L Potassium 4.4 Chloride 104 Carbon Dioxide 22 L BUN 15 Creatinine 0.61 Glucose 89 Calcium 8.3 L Liver Function 11/17/17 Range/Units 05:15 Total Bilirubin 1.4 H (0.3-1.0) mg/dL AST 7 L (13-39) Units/L ALT 5 L (7-52) Units/L Alkaline Phosphatase 395 H (34-104) Units/L Albumin 2.1 L (3.5-5.7) g/dL Consult Discharge Plan - Plan Referrals: Gertrudis Chapin MD [Primary Care Provider] - 1 week
[2017-11-17] MEDS: *HR* Rivaroxaban 10 MG TABLET PO SCH (17:21)
[2017-11-17] MEDS: Bumetanide 1 MG TABLET PO SCH (17:22)
[2017-11-17] MEDS: traZODone 50 MG TABLET PO SCH (21:13)
[2017-11-18] MEDS: Levothyroxine 25 MCG TABLET PO SCH (06:21)
[2017-11-18] MEDS: *HR* Amiodarone 200 MG TABLET PO SCH (10:19)
[2017-11-18] MEDS: Bumetanide 1 MG TABLET PO SCH (10:19)
[2017-11-18] MEDS: ALPRAZolam 0.5 MG TABLET PO PRN (13:31)
[2017-11-18] MEDS: *HR* Rivaroxaban 10 MG TABLET PO SCH (16:24)
[2017-11-18] MEDS: traZODone 50 MG TABLET PO SCH (22:40)
[2017-11-18] MEDS: *HR* HYDROcodone/Acet 5/325 mg TABLET PO PRN (22:40)
[2017-11-19] MEDS: Levothyroxine 25 MCG TABLET PO SCH (06:46)
[2017-11-19] MEDS: Bumetanide 1 MG TABLET PO SCH (08:13)
[2017-11-19] MEDS: *HR* Amiodarone 200 MG TABLET PO SCH ×2 (08:13→09:45)
--- NOTE | 2017-11-19 12:13 | Internal Med Progress Note ---
Date of Encounter: 11/19/17 Time of Encounter: 12:05 - Assessment and plan (1) Anemia Current Visit: No Status: Chronic Assessment and plan: November 17. Hemoglobin decreased slightly to 8.3. Await bone marrow biopsy in approximately 2 weeks. Qualifiers: Anemia type: unspecified type Qualified Code(s): D64.9 - Anemia, unspecified (2) Weight loss Current Visit: No Status: Chronic Assessment and plan: November 17. Will monitor (3) Atrial fibrillation Current Visit: No Status: Acute Assessment and plan: November 17. Continue Xarelto and atenolol. Qualifiers: Atrial fibrillation type: paroxysmal Qualified Code(s): I48.0 - Paroxysmal atrial fibrillation (4) Hypothyroidism Current Visit: No Status: Chronic Assessment and plan: November 17. Continue Synthroid. Qualifiers: Hypothyroidism type: unspecified Qualified Code(s): E03.9 - Hypothyroidism , unspecified (5) Edema Current Visit: Yes Status: Acute Assessment and plan: November 17. BN peptide normal at 79. Echocardiogram during recent [facility] hospitalization showed LVEF 65-70%. Suspect due to low oncotic intravascular pressure. Will start Bumex. November 19. Continue Bumex Qualifiers: Edema type: unspecified Qualified Code(s): R60.9 - Edema, unspecified - Subjective Interval history: November 17. She has no new complaints. November 19. She has no new complaints. She feels Bumex has reduced her edema slightly. - Constitutional Vitals: Temp Pulse Resp BP Pulse Ox 97.8 F 79 16 84/54 93 11/18/17 20:12 11/19/17 09:37 11/18/17 20:12 11/19/17 09:37 11/18/17 20:12 Exam: She is sitting in a chair at bedside preparing to eat lunch. Her affect is bright and cheerful. I reviewed her medications and past lab results. Internal Medicine: Result - Labs CBC & Chem 7: 11/17/17 05:15 11/17/17 05:15 Consult Discharge Plan - Plan Referrals: Gertrudis Chapin MD [Primary Care Provider] - 1 week
[2017-11-19] MEDS: *HR* HYDROcodone/Acet 5/325 mg TABLET PO PRN ×2 (15:39→20:55)
[2017-11-19] MEDS: *HR* Rivaroxaban 10 MG TABLET PO SCH (17:21)
[2017-11-19] MEDS: traZODone 50 MG TABLET PO SCH (20:55)
[2017-11-20] MEDS: Levothyroxine 25 MCG TABLET PO SCH (06:36)
[2017-11-20] MEDS: *HR* Amiodarone 200 MG TABLET PO SCH (07:49)
[2017-11-20] MEDS: Bumetanide 1 MG TABLET PO SCH (09:59)
[2017-11-20] MEDS: *HR* HYDROcodone/Acet 5/325 mg TABLET PO PRN (18:35)
[2017-11-20] MEDS: ALPRAZolam 0.5 MG TABLET PO PRN (18:35)
[2017-11-20] MEDS: *HR* Rivaroxaban 10 MG TABLET PO SCH (18:35)
[2017-11-20] MEDS: traZODone 50 MG TABLET PO SCH (22:30)
[2017-11-21] MEDS: Levothyroxine 25 MCG TABLET PO SCH (06:58)
[2017-11-21] MEDS ORDERED: *HR* Amiodarone 200 MG TABLET PO SCH (09:00)
[2017-11-21] MEDS: Bumetanide 1 MG TABLET PO SCH (09:23)
[2017-11-21] MEDS: *HR* Amiodarone 200 MG TABLET PO SCH (09:23)
[2017-11-21] MEDS: ALPRAZolam 0.5 MG TABLET PO PRN (13:30)
--- NOTE | 2017-11-21 15:48 | Internal Med Progress Note ---
Date of Encounter: 11/21/17 Time of Encounter: 15:40 - Assessment and plan (1) Anemia Current Visit: No Status: Chronic Assessment and plan: November 17. Hemoglobin decreased slightly to 8.3. Await bone marrow biopsy in approximately 2 weeks. November 21. Await bone marrow biopsy in approximately 2 weeks. Qualifiers: Anemia type: unspecified type Qualified Code(s): D64.9 - Anemia, unspecified (2) Weight loss Current Visit: No Status: Chronic Assessment and plan: November 17. Will monitor (3) Atrial fibrillation Current Visit: No Status: Acute Assessment and plan: November 17. Continue Xarelto and atenolol. Qualifiers: Atrial fibrillation type: paroxysmal Qualified Code(s): I48.0 - Paroxysmal atrial fibrillation (4) Hypothyroidism Current Visit: No Status: Chronic Assessment and plan: November 17. Continue Synthroid. Qualifiers: Hypothyroidism type: unspecified Qualified Code(s): E03.9 - Hypothyroidism , unspecified (5) Edema Current Visit: Yes Status: Acute Assessment and plan: November 17. BN peptide normal at 79. Echocardiogram during recent [facility] hospitalization showed LVEF 65-70%. Suspect due to low oncotic intravascular pressure. Will start Bumex. November 19. Continue Bumex November 21. Continue Bumex and elastic wraps. Qualifiers: Edema type: unspecified Qualified Code(s): R60.9 - Edema, unspecified - Subjective Interval history: November 17. She has no new complaints. November 19. She has no new complaints. She feels Bumex has reduced her edema slightly. November 21. She has no new complaints. She feels Bumex has further reduced her edema. She also requested elastic level wraps be initiated which has lessened edema also. - Constitutional Vitals: Temp Pulse Resp BP Pulse Ox 98.1 F 85 14 97/55 95 11/21/17 07:27 11/21/17 07:27 11/21/17 07:27 11/21/17 07:27 11/21/17 07:27 Exam: She is resting comfortably in bed and appears in no acute distress. Her legs have elastic wrap in place. Her affect is bright and cheerful. I reviewed her medications and lab results. Internal Medicine: Result - Labs CBC & Chem 7: 11/17/17 05:15 11/17/17 05:15 Consult Discharge Plan - Plan Referrals: Gertrudis Chapin MD [Primary Care Provider] - 1 week Mouna Liao CNP [Partnered Physician] - 12/07/17 8:00 am
[2017-11-21] MEDS: *HR* Rivaroxaban 10 MG TABLET PO SCH (17:11)
[2017-11-21] MEDS: Ipratropium/Albuterol Neb 3 ML IH PRN (20:28)
[2017-11-21] MEDS: traZODone 50 MG TABLET PO SCH (20:32)
[2017-11-22] MEDS: Albuterol 2.5 MG/3 ML NEBULIZER IH PRN ×2 (00:15→05:24)
[2017-11-22] MEDS: *HR* HYDROcodone/Acet 5/325 mg TABLET PO PRN (05:04)
[2017-11-22] MEDS: Levothyroxine 25 MCG TABLET PO SCH (06:25)
[2017-11-22] MEDS: Bumetanide 1 MG TABLET PO SCH (09:30)
[2017-11-22] MEDS: *HR* Amiodarone 200 MG TABLET PO SCH (09:30)
--- NOTE | 2017-11-22 14:16 | Internal Med Progress Note ---
Date of Encounter: 11/22/17 Time of Encounter: 14:05 - Assessment and plan (1) Anemia Current Visit: No Status: Chronic Assessment and plan: November 17. Hemoglobin decreased slightly to 8.3. Await bone marrow biopsy in approximately 2 weeks. November 21. Await bone marrow biopsy in approximately 2 weeks. Qualifiers: Anemia type: unspecified type Qualified Code(s): D64.9 - Anemia, unspecified (2) Weight loss Current Visit: No Status: Chronic Assessment and plan: November 17. Will monitor (3) Atrial fibrillation Current Visit: No Status: Acute Assessment and plan: November 17. Continue Xarelto and atenolol. Qualifiers: Atrial fibrillation type: paroxysmal Qualified Code(s): I48.0 - Paroxysmal atrial fibrillation (4) Hypothyroidism Current Visit: No Status: Chronic Assessment and plan: November 17. Continue Synthroid. Qualifiers: Hypothyroidism type: unspecified Qualified Code(s): E03.9 - Hypothyroidism , unspecified (5) Edema Current Visit: Yes Status: Acute Assessment and plan: November 17. BN peptide normal at 79. Echocardiogram during recent [facility] hospitalization showed LVEF 65-70%. Suspect due to low oncotic intravascular pressure. Will start Bumex. November 19. Continue Bumex November 21. Continue Bumex and elastic wraps. November 22. Bumex has been held for 1-2 days because of borderline low blood pressure. We will give Bumex today and monitor pressure. Qualifiers: Edema type: unspecified Qualified Code(s): R60.9 - Edema, unspecified - Subjective Interval history: November 17. She has no new complaints. November 19. She has no new complaints. She feels Bumex has reduced her edema slightly. November 21. She has no new complaints. She feels Bumex has further reduced her edema. She also requested elastic level wraps be initiated which has lessened edema also. November 22. She has no new complaints. - Constitutional Vitals: Temp Pulse Resp BP Pulse Ox 98.3 F 89 16 84/58 98 11/22/17 09:20 11/22/17 09:20 11/22/17 09:20 11/22/17 09:20 11/22/17 09:20 Exam: She is resting comfortably in bed and appears in no acute distress. Her affect is bright and cheerful. Her extremity edema is still present despite elastic wrap use. I reviewed her medications and lab results. Internal Medicine: Result - Labs CBC & Chem 7: 11/17/17 05:15 11/17/17 05:15 - VTE Documentation of Mechanical Device: Graduated compression elastic hosiery Consult Discharge Plan - Plan Referrals: Gertrudis Chapin MD [Primary Care Provider] - 1 week Mouna Liao CNP [Partnered Physician] - 12/07/17 8:00 am
[2017-11-22] MEDS: *HR* Rivaroxaban 10 MG TABLET PO SCH (17:41)
[2017-11-22] MEDS: traZODone 50 MG TABLET PO SCH (21:33)
[2017-11-22] MEDS: Ipratropium/Albuterol Neb 3 ML IH PRN (23:32)
[2017-11-23] MEDS: ALPRAZolam 0.5 MG TABLET PO PRN ×2 (02:04→20:13)
[2017-11-23] MEDS: Ondansetron ODT 4 MG TAB.RAPDIS PO PRN (02:04)
[2017-11-23] MEDS: Levothyroxine 25 MCG TABLET PO SCH (06:24)
[2017-11-23] MEDS ORDERED: Bumetanide 1 MG TABLET PO ONE (07:55)
[2017-11-23] MEDS: *HR* Amiodarone 200 MG TABLET PO SCH (09:23)
[2017-11-23] MEDS: Bumetanide 1 MG TABLET PO SCH ×2 (09:23→17:13)
--- NOTE | 2017-11-23 15:19 | Internal Med Progress Note ---
Date of Encounter: 11/23/17 Time of Encounter: 15:10 - Assessment and plan (1) Anemia Current Visit: No Status: Chronic Assessment and plan: November 17. Hemoglobin decreased slightly to 8.3. Await bone marrow biopsy in approximately 2 weeks. November 21. Await bone marrow biopsy in approximately 2 weeks. Qualifiers: Anemia type: unspecified type Qualified Code(s): D64.9 - Anemia, unspecified (2) Weight loss Current Visit: No Status: Chronic Assessment and plan: November 17. Will monitor (3) Atrial fibrillation Current Visit: No Status: Acute Assessment and plan: November 17. Continue Xarelto and atenolol. Qualifiers: Atrial fibrillation type: paroxysmal Qualified Code(s): I48.0 - Paroxysmal atrial fibrillation (4) Hypothyroidism Current Visit: No Status: Chronic Assessment and plan: November 17. Continue Synthroid. Qualifiers: Hypothyroidism type: unspecified Qualified Code(s): E03.9 - Hypothyroidism , unspecified (5) Edema Current Visit: Yes Status: Acute Assessment and plan: November 17. BN peptide normal at 79. Echocardiogram during recent [facility] hospitalization showed LVEF 65-70%. Suspect due to low oncotic intravascular pressure. Will start Bumex. November 19. Continue Bumex November 21. Continue Bumex and elastic wraps. November 22. Bumex has been held for 1-2 days because of borderline low blood pressure. We will give Bumex today and monitor pressure. November 23. She received lower dose Bumex today. We will check labs in a.m. Qualifiers: Edema type: unspecified Qualified Code(s): R60.9 - Edema, unspecified - Subjective Interval history: November 17. She has no new complaints. November 19. She has no new complaints. She feels Bumex has reduced her edema slightly. November 21. She has no new complaints. She feels Bumex has further reduced her edema. She also requested elastic level wraps be initiated which has lessened edema also. November 22. She has no new complaints. November 23. She complains of dyspnea. She reports that it worsened after taking nebulizer treatment. - Constitutional Vitals: Temp Pulse Resp BP Pulse Ox 98.1 F 96 17 89/60 100 11/23/17 10:28 11/23/17 10:28 11/23/17 10:28 11/23/17 10:28 11/23/17 10:28 Exam: She is resting comfortably in bed and appears in no acute distress. Her affect is bright and cheerful. Extremities show 1-2+ pitting edema in the dorsum of the feet but significant decrease in the lower anterior shins bilaterally. Lungs show few expiratory wheezes but no inspiratory crackles. Heart is regular 92/m. I reviewed her medications and lab results. Internal Medicine: Result - Labs CBC & Chem 7: 11/17/17 05:15 11/17/17 05:15 - VTE Documentation of Mechanical Device: Graduated compression elastic hosiery Consult Discharge Plan - Plan Referrals: Gertrudis Chapin MD [Primary Care Provider] - 1 week Yessi Garcia MD [Partnered Physician] - 1 week Mouna Liao CNP [Partnered Physician] - 12/07/17 8:00 am
[2017-11-23] MEDS: *HR* Rivaroxaban 10 MG TABLET PO SCH (17:13)
[2017-11-23] MEDS: traZODone 50 MG TABLET PO SCH (20:08)
[2017-11-24] MEDS: Levothyroxine 25 MCG TABLET PO SCH (06:26)
[2017-11-24 06:29] LABS: Basophils % 0.3 %; Hematocrit 21.9 % (35.3-44.9); Hemoglobin 6.7 g/dL (11.5-15.4); Immature Granulocytes % 10.9 % (0-4); Lymphocytes # 0.4 K/mcL (0.6-4.6); Lymphocytes % 9.1 %; Mean Corpuscular HGB Conc 30.6 g/dL (31.6-35.5); Mean Corpuscular Volume 88.3 fL (83.0-100.0); Mean Platelet Volume 10.6 fL (9.4-12.4); Monocytes # 1.1 K/mcL (0.0-1.3); Monocytes % 27.5 %; Platelet Count 106 K/mcL (140-400); Red Blood Count 2.48 M/mcL (3.82-4.97); Red Cell Distribution Width 17.1 % (11.5-14.5); Segmented Neutrophils % 52.2 %
[2017-11-24 06:46] LABS: BUN/Creatinine Ratio 19 (6-26); Blood Urea Nitrogen 13 mg/dL (8-23); Calcium 7.6 mg/dL (8.6-10.3); Carbon Dioxide 26 mEq/L (23-29); Chloride 97 mEq/L (98-107); Glucose 88 mg/dL (70-105); Magnesium 1.2 mg/dL (1.6-2.6); Osmolality,Calculated 270 (280-300); Potassium 4.1 mEq/L (3.5-5.1); Sodium 130 mEq/L (136-145); eGFR For African Americans > 60 (> 60); eGFR For Non-African Americans > 60 (> 60)
[2017-11-24 06:58] LABS: Platelet Estimate Decreased (Normal)
[2017-11-24] MEDS ORDERED: 0.9 % Sodium Chloride 250 ML ONE ×2 (10:29→23:31)
[2017-11-24] MEDS: *HR* Amiodarone 200 MG TABLET PO SCH (10:39)
[2017-11-24] MEDS: ALPRAZolam 0.5 MG TABLET PO PRN (12:39)
[2017-11-24] MEDS: Bumetanide 1 MG TABLET PO SCH (14:33)
[2017-11-24] MEDS ORDERED: ALPRAZolam 0.5 MG TABLET PO PRN (17:38)
[2017-11-24] MEDS: *HR* Rivaroxaban 10 MG TABLET PO SCH (18:23)
--- NOTE | 2017-11-24 18:31 | Internal Med Progress Note ---
Date of Encounter: 11/24/17 Time of Encounter: 18:20 - Assessment and plan (1) Anemia Current Visit: No Status: Chronic Assessment and plan: November 17. Hemoglobin decreased slightly to 8.3. Await bone marrow biopsy in approximately 2 weeks. November 21. Await bone marrow biopsy in approximately 2 weeks. November 24. Hemoglobin decreased to 6.7 today. 2 units packed red blood cells have been ordered. Qualifiers: Anemia type: unspecified type Qualified Code(s): D64.9 - Anemia, unspecified (2) Weight loss Current Visit: No Status: Chronic Assessment and plan: November 17. Will monitor (3) Atrial fibrillation Current Visit: No Status: Acute Assessment and plan: November 17. Continue Xarelto and atenolol. Qualifiers: Atrial fibrillation type: paroxysmal Qualified Code(s): I48.0 - Paroxysmal atrial fibrillation (4) Hypothyroidism Current Visit: No Status: Chronic Assessment and plan: November 17. Continue Synthroid. Qualifiers: Hypothyroidism type: unspecified Qualified Code(s): E03.9 - Hypothyroidism , unspecified (5) Edema Current Visit: Yes Status: Acute Assessment and plan: November 17. BN peptide normal at 79. Echocardiogram during recent [facility] hospitalization showed LVEF 65-70%. Suspect due to low oncotic intravascular pressure. Will start Bumex. November 19. Continue Bumex November 21. Continue Bumex and elastic wraps. November 22. Bumex has been held for 1-2 days because of borderline low blood pressure. We will give Bumex today and monitor pressure. November 23. She received lower dose Bumex today. We will check labs in a.m. Qualifiers: Edema type: unspecified Qualified Code(s): R60.9 - Edema, unspecified (6) Hypomagnesemia Current Visit: Yes Status: Acute Assessment and plan: November 24. Will order magnesium oxide supplement. - Subjective Interval history: November 17. She has no new complaints. November 19. She has no new complaints. She feels Bumex has reduced her edema slightly. November 21. She has no new complaints. She feels Bumex has further reduced her edema. She also requested elastic level wraps be initiated which has lessened edema also. November 22. She has no new complaints. November 23. She complains of dyspnea. She reports that it worsened after taking nebulizer treatment. November 24. She has no complaints at present. - Constitutional Vitals: Temp Pulse Resp BP Pulse Ox 99.5 F 106 16 108/49 95 11/24/17 12:37 11/24/17 12:37 11/24/17 12:37 11/24/17 12:37 11/24/17 10:48 Exam: She is sitting comfortably in a chair at bedside. Her affect is overall cheerful. I reviewed her medications. I discussed pertinent lab results with her. Internal Medicine: Result - Labs CBC & Chem 7: 11/24/17 06:14 11/24/17 06:14 Labs: Short CBC 11/24/17 Range/Units 06:14 WBC 3.9 L (4.3-11.1) K/mcL Hgb 6.7 L (11.5-15.4) g/dL Hct 21.9 L (35.3-44.9) % Plt Count 106 L (140-400) K/mcL Neutrophils # 2.0 (1.6-8.9) K/mcL BMP 11/24/17 06:14 Sodium 130 L Potassium 4.1 Chloride 97 L Carbon Dioxide 26 BUN 13 Creatinine 0.70 Glucose 88 Calcium 7.6 L - VTE Documentation of Mechanical Device: Graduated compression elastic hosiery Consult Discharge Plan - Plan Referrals: Gertrudis Chapin MD [Primary Care Provider] - 1 week Yessi Garcia MD [Partnered Physician] - 1 week Mouna Liao CNP [Partnered Physician] - 12/07/17 8:00 am
[2017-11-24] MEDS: Magnesium Oxide 400 MG TABLET PO SCH (18:53)
[2017-11-24] MEDS: *HR* HYDROcodone/Acet 5/325 mg TABLET PO PRN (20:38)
[2017-11-25] MEDS ORDERED: Acetaminophen 325 MG TABLET PO ONE (00:19)
[2017-11-25] MEDS: GuaiFENesin Liq 200 MG/10 ML UDC PO PRN ×2 (01:12→20:46)
[2017-11-25] MEDS: traZODone 50 MG TABLET PO SCH (01:37)
[2017-11-25] MEDS: Levothyroxine 25 MCG TABLET PO SCH (06:18)
[2017-11-25] MEDS: Magnesium Oxide 400 MG TABLET PO SCH ×2 (08:38→20:46)
[2017-11-25] MEDS: *HR* Amiodarone 200 MG TABLET PO SCH (08:38)
[2017-11-25] MEDS: Bumetanide 1 MG TABLET PO SCH (08:39)
--- NOTE | 2017-11-25 10:59 | Internal Med Progress Note ---
Date of Encounter: 11/25/17 Time of Encounter: 10:50 - Assessment and plan (1) Anemia Current Visit: No Status: Chronic Assessment and plan: November 17. Hemoglobin decreased slightly to 8.3. Await bone marrow biopsy in approximately 2 weeks. November 21. Await bone marrow biopsy in approximately 2 weeks. November 24. Hemoglobin decreased to 6.7 today. 2 units packed red blood cells have been ordered. Qualifiers: Anemia type: unspecified type Qualified Code(s): D64.9 - Anemia, unspecified (2) Weight loss Current Visit: No Status: Chronic Assessment and plan: November 17. Will monitor (3) Atrial fibrillation Current Visit: No Status: Acute Assessment and plan: November 17. Continue Xarelto and atenolol. Qualifiers: Atrial fibrillation type: paroxysmal Qualified Code(s): I48.0 - Paroxysmal atrial fibrillation (4) Hypothyroidism Current Visit: No Status: Chronic Assessment and plan: November 17. Continue Synthroid. Qualifiers: Hypothyroidism type: unspecified Qualified Code(s): E03.9 - Hypothyroidism , unspecified (5) Edema Current Visit: Yes Status: Acute Assessment and plan: November 17. BN peptide normal at 79. Echocardiogram during recent [facility] hospitalization showed LVEF 65-70%. Suspect due to low oncotic intravascular pressure. Will start Bumex. November 19. Continue Bumex November 21. Continue Bumex and elastic wraps. November 22. Bumex has been held for 1-2 days because of borderline low blood pressure. We will give Bumex today and monitor pressure. November 23. She received lower dose Bumex today. We will check labs in a.m. November 25. Will increase Bumex dose to lessen edema. Qualifiers: Edema type: unspecified Qualified Code(s): R60.9 - Edema, unspecified (6) Hypomagnesemia Current Visit: Yes Status: Acute Assessment and plan: November 24. Will order magnesium oxide supplement. November 25. Continue magnesium oxide supplement. - Subjective Interval history: November 17. She has no new complaints. November 19. She has no new complaints. She feels Bumex has reduced her edema slightly. November 21. She has no new complaints. She feels Bumex has further reduced her edema. She also requested elastic level wraps be initiated which has lessened edema also. November 22. She has no new complaints. November 23. She complains of dyspnea. She reports that it worsened after taking nebulizer treatment. November 24. She has no complaints at present. November 25. She has no new complaints. She had no adverse reaction from blood transfusions. - Constitutional Vitals: Temp Pulse Resp BP Pulse Ox 99.8 F H 105 18 91/60 95 11/25/17 06:45 11/25/17 06:45 11/25/17 06:45 11/25/17 06:45 11/25/17 06:45 Exam: She is resting comfortably in bed and appears in no acute distress. Her affect is cheerful. Her legs are wrapped but there is still pitting edema noted through the elastic wrap. I reviewed her medications and lab results. Internal Medicine: Result - Labs CBC & Chem 7: 11/24/17 06:14 11/24/17 06:14 - VTE Documentation of Mechanical Device: Graduated compression elastic hosiery Consult Discharge Plan - Plan Referrals: Gertrudis Chapin MD [Primary Care Provider] - 1 week Yessi Garcia MD [Partnered Physician] - 1 week Mouna Liao CNP [Partnered Physician] - 12/07/17 8:00 am
[2017-11-25] MEDS ORDERED: Bumetanide 1 MG TABLET PO SCH (11:01)
[2017-11-25] MEDS: *HR* Rivaroxaban 10 MG TABLET PO SCH (17:54)
[2017-11-25] MEDS: Ondansetron ODT 4 MG TAB.RAPDIS PO PRN (18:33)
[2017-11-25] MEDS: ALPRAZolam 0.5 MG TABLET PO PRN (22:09)
[2017-11-25] MEDS: *HR* HYDROcodone/Acet 5/325 mg TABLET PO PRN (22:10)
[2017-11-26] MEDS: Acetaminophen 325 MG TABLET PO SCH ×2 (00:37→06:46)
[2017-11-26] MEDS: traZODone 50 MG TABLET PO SCH (00:38)
[2017-11-26] MEDS: ALPRAZolam 0.5 MG TABLET PO PRN ×2 (02:51→09:20)
[2017-11-26] MEDS: GuaiFENesin Liq 200 MG/10 ML UDC PO PRN ×2 (02:51→09:19)
[2017-11-26] MEDS: Levothyroxine 25 MCG TABLET PO SCH (06:46)
[2017-11-26 07:22] VITALS: BP 98/61
[2017-11-26] MEDS: *HR* Amiodarone 200 MG TABLET PO SCH (09:20)
[2017-11-26] MEDS: Magnesium Oxide 400 MG TABLET PO SCH (09:20)
--- NOTE | 2017-11-26 10:07 | Discharge Summary ---
Date of Encounter: 11/26/17 Time of Encounter: 09:55 - Discharge Diagnosis (1) Anemia Priority: Primary Status: Chronic Qualifiers: Anemia type: unspecified type Qualified Code(s): D64.9 - Anemia, unspecified (2) Weight loss Priority: Secondary Status: Chronic (3) Atrial fibrillation Priority: Secondary Status: Chronic Qualifiers: Atrial fibrillation type: paroxysmal Qualified Code(s): I48.0 - Paroxysmal atrial fibrillation (4) Hypothyroidism Priority: Secondary Status: Chronic Qualifiers: Hypothyroidism type: unspecified Qualified Code(s): E03.9 - Hypothyroidism , unspecified (5) Edema Priority: Secondary Status: Acute Qualifiers: Edema type: unspecified Qualified Code(s): R60.9 - Edema, unspecified (6) Hypomagnesemia Priority: Secondary Status: Acute Hospital course: Ms. Cervantes is a 67 year old female who was transferred to [facility] swing bed 2017 following a 11/05/2017 [facility] admission for anemia. She had previously been hospitalized at [facility] for 10/27/2017 to 10/30/2017 with anemia. EGD and colonoscopy were done without significant pathology found. She did have diverticulosis and irregularity at the Z line but no active bleeding seen. She had worsening anemia and was readmitted. She was found to have an dyspnea with pericardial effusion seen on echocardiogram. There was felt to be early cardiac taponade present so a pericardial window procedure was performed. She had AF with RVR and converted back to NSR with amiodarone. She was seen by oncology for anemia and thrombocytopenia. A bone marrow study was recommended and is planned in 1-2 weeks. A rheumatology consult was suggested but has not been done. She was discharged to swing bed to receive therapy prior to returning to independent living. Initial orders were written by the discharging physicians at [facility]. I saw her on November 16 and performed a swing bed history and physical. She had physical therapy and occupational therapy evaluations with ongoing interventions. She made limited progress during her hospital stay. A follow-up CBC was done November 24 and showed hemoglobin decreased to 6.7. She was given 2 units packed red blood cells. She is scheduled for bone marrow biopsy in approximately one week further evaluate anemia and thrombocytopenia. Magnesium level returned low at 1.2 on November 24. She was started on magnesium oxide. She will receive a 7 day supply on prescription of discharge. Her PCP can monitor and prescribe additional medication as needed. Atenolol was held because of hypotension. She will be given Lanoxin at discharge for rate control from AF. She was started on Bumex for edema. On November 26 she wished to be discharged home. Home health services will be ordered for ongoing care needs. She will follow with her PCP Dr. Chapin within 1 week. - Time Spent with Patient Total time spent providing and/or coordinating discharge services: - Discharge Medications Prescriptions: Bumetanide [Bumex] 1 mg PO DAILY #30 tablet Digoxin [Lanoxin] 0.125 mg PO DAILY #30 tablet Magnesium Oxide [Mag-Ox] 400 mg PO BID #14 tablet Home Medications: Cyanocobalamin (B-12) [Vitamin B12] 1,000 mcg IM Q2W 09/21/17 [History] Diclofenac Sodium [Voltaren] 1 appl TP QID PRN 09/21/17 [History] Nitroglycerin [Nitrostat] 0.4 mg SL Q5M PRN 09/21/17 [History] Ondansetron HCl [Zofran] 4 - 8 mg PO TID PRN 09/21/17 [History] Potassium Chloride [K-Tab ER] 20 meq PO BID 09/21/17 [History] Pravastatin Sodium [Pravachol] 20 mg PO HS 09/21/17 [History] Trazodone HCl 100 mg PO HS 09/21/17 [History] Levothyroxine [Synthroid] 25 mcg PO 0630 10/16/17 [History] [place]-3 Fatty Acids [Fish Oil Concentrate] 2,000 mg PO BID 10/16/17 [History] Ipratropium/Albuterol Neb [Duoneb] 3 ml IH Q6HR PRN 7 Days #28 vial.neb [Rx] ALPRAZolam [Xanax 0.5 MG Tablet] 0.5 mg PO BID PRN 5 Days #10 11/15/17 [Rx] Albuterol Neb [Proventil Neb] 2.5 mg IH [id number] PRN inhsol 11/15/17 [Rx] Amiodarone [Cordarone] 200 mg PO BID #12 tablet 11/15/17 [Rx] Amiodarone [Cordarone] 200 mg PO DAILY #30 tablet 11/15/17 [Rx] HYDROcodone/Acet 5/325 mg [[place] 5-325 mg] 1 tab PO TID PRN 5 Days #7 11/15/17 [ Rx] Omeprazole [PriLOSEC] 40 mg PO DAILY@0730 capsule. 11/15/17 [Rx] Rivaroxaban [Xarelto] 20 mg PO 1700 #30 tablet 11/15/17 [Rx] Bumetanide [Bumex] 1 mg PO DAILY #30 tablet 11/26/17 [Rx] Digoxin [Lanoxin] 0.125 mg PO DAILY #30 tablet 11/26/17 [Rx] Magnesium Oxide [Mag-Ox] 400 mg PO BID #14 tablet 11/26/17 [Rx] Allergies/Adverse Reactions: 3 Allergy/AdvReac Type Severity Reaction Status Date / Time No Known Allergies Allergy Verified 11/05/17 19:44 Date of admission: 11/15/17 15:06 Primary care physician: Gertrudis Chapin Consults: 11/15/17 17:31 Consult to Physical Therapy [CONS] Routine Comment: Evaluate, develop and implement POC Reason for Consult: Evaluate, develop and implement POC Does patient have active BEDREST order?: No Is patient medically & hemodynamically stable?: Yes 11/15/17 17:32 Consult to Occupational Therapy [CONS] Routine Comment: Evaluate, develop and implement POC Reason for Consult: Evaluate, develop and implement POC Does patient have active BEDREST order?: No Is patient medically & hemodynamically stable?: Yes - Constitutional Vitals: Temp Pulse Resp BP Pulse Ox 97.6 F 107 24 98/61 99 11/26/17 07:18 11/26/17 07:18 11/26/17 07:18 11/26/17 07:18 11/26/17 07:18 - Patient Status Disposition: Home Health Service Functional capacity at discharge: uses cane/walker Overall status at discharge: patient is progressing back to baseline - Discharge Instructions Follow Up With: Gertrudis Chapin MD [Primary Care Provider] - 1 week Yessi Garcia MD [Partnered Physician] - 1 week Mouna Liao CNP [Partnered Physician] - 12/07/17 8:00 am - Diet and Activity Activity: as per physical therapy Diet: regular diet - VTE Documentation of Mechanical Device: Graduated compression elastic hosiery
--- NOTE | 2017-11-26 10:15 | Physician Discharge Referral ---
Home Health/Hosp Referral Info Transfer to: Home Health Attending Provider: Yasmany Provider in Charge Post Discharge: PCP Ciera) - Diagnosis (1) Anemia Priority: Primary Status: Chronic (2) Weight loss Priority: Secondary Status: Chronic (3) Atrial fibrillation Priority: Secondary Status: Chronic (4) Hypothyroidism Priority: Secondary Status: Chronic (5) Edema Priority: Secondary Status: Acute (6) Hypomagnesemia Priority: Secondary Status: Acute - Respiratory Orders Smoking Cessation: Smoking cessation has been advised. For more information, call the [place] Tobacco Quit Line at 4-102-WVYP-NOW. - Diet/Nutrition Diet/Nutrition Orders: Regular - Activity Activity Orders: Walker - Services Needed Following services are medically necessary services: Nursing, Home Health Aide, Physical Therapy, Occupational Therapy - Transfer Medications Prescriptions: Bumetanide [Bumex] 1 mg PO DAILY #30 tablet Digoxin [Lanoxin] 0.125 mg PO DAILY #30 tablet Magnesium Oxide [Mag-Ox] 400 mg PO BID #14 tablet Home Medications: Cyanocobalamin (B-12) [Vitamin B12] 1,000 mcg IM Q2W 09/21/17 [History] Diclofenac Sodium [Voltaren] 1 appl TP QID PRN 09/21/17 [History] Nitroglycerin [Nitrostat] 0.4 mg SL Q5M PRN 09/21/17 [History] Ondansetron HCl [Zofran] 4 - 8 mg PO TID PRN 09/21/17 [History] Potassium Chloride [K-Tab ER] 20 meq PO BID 09/21/17 [History] Pravastatin Sodium [Pravachol] 20 mg PO HS 09/21/17 [History] Trazodone HCl 100 mg PO HS 09/21/17 [History] Levothyroxine [Synthroid] 25 mcg PO 0630 10/16/17 [History] [place]-3 Fatty Acids [Fish Oil Concentrate] 2,000 mg PO BID 10/16/17 [History] Ipratropium/Albuterol Neb [Duoneb] 3 ml IH Q6HR PRN 7 Days #28 vial.neb [Rx] ALPRAZolam [Xanax 0.5 MG Tablet] 0.5 mg PO BID PRN 5 Days #10 11/15/17 [Rx] Albuterol Neb [Proventil Neb] 2.5 mg IH [id number] PRN inhsol 11/15/17 [Rx] Amiodarone [Cordarone] 200 mg PO BID #12 tablet 11/15/17 [Rx] Amiodarone [Cordarone] 200 mg PO DAILY #30 tablet 11/15/17 [Rx] HYDROcodone/Acet 5/325 mg [[place] 5-325 mg] 1 tab PO TID PRN 5 Days #7 11/15/17 [ Rx] Omeprazole [PriLOSEC] 40 mg PO DAILY@0730 capsule. 11/15/17 [Rx] Rivaroxaban [Xarelto] 20 mg PO 1700 #30 tablet 11/15/17 [Rx] Bumetanide [Bumex] 1 mg PO DAILY #30 tablet 11/26/17 [Rx] Digoxin [Lanoxin] 0.125 mg PO DAILY #30 tablet 11/26/17 [Rx] Magnesium Oxide [Mag-Ox] 400 mg PO BID #14 tablet 11/26/17 [Rx] Allergies/Adverse Reactions: 3 Allergy/AdvReac Type Severity Reaction Status Date / Time No Known Allergies Allergy Verified 11/05/17 19:44 Certification: Further, I certify that my clinical findings support that this patient is homebound (i.e. absences from home require considerable and taxing effort and are for medical reasons or zoroastrian services or infrequently or short duration when for other reasons) because: Homebound Reason: Leaving home requires considerable and taxing effort due to condition (Difficult mobility and dyspnea on exertion due to anemia and atrial fibrillation) Attestation: My signature below is to certify that this patient is under my care and that I, or nurse practitioner, or a physician's hospital administrative assistant working with me, has a face-to -face encounter with this patient.
[2017-11-30] MEDS ORDERED: Cyanocobalamin (B-12) 1,000 MCG/ML VIAL IM SCH (09:00)
== END 2017-11-26 12:45 | disposition home health service (06) | DRG 946 ==
LOC: INPPIK 11-15 15:06
PROVIDERS: ADMIT Internal Medicine; ATTEND Internal Medicine